=== PATIENT | male | born 1950 | race Caucasian/White ===

== ENCOUNTER → 2021-03-22 13:12 | Outpatient (BNVA) | payer MEDICARE, SELFPAY | PROVIDERS: Family Provider Family Medicine; Visit Provider Nurse Practitioner Family | DX: Z20.822 Contact with and (suspected) exposure to COVID-19 (principal) | CPT/HCPCS: 87635 ==

== ENCOUNTER 2021-08-05 17:27 | Emergency (ER) | payer MEDICARE, SELFPAY ==
[2021-08-05 17:31] VITALS: BP 141/112; PULSE 77; RESP 16; O2SAT 97; BMI 26.5
--- NOTE | 2021-08-05 17:35 | ECG_ITS ---
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 Measurements Intervals [place] Rate: 67 P: 50 [place]: 146 QRS: 19 QRSD: 89 T: 32 QT: 388 QTc: 410 Interpretive Statements SINUS RHYTHM No previous ECG available for comparison Electronically Signed On 08-05-2021 20:19:47 REGENERATOR OPERATOR by Chey Ayala M.D. [id number]
--- NOTE | 2021-08-05 17:35 | XRR_ITS ---
PROCEDURE INFORMATION: Exam: XR Chest Exam date and time: 08/05/2021 5:35 PM Age: 71 years old Clinical indication: Sternal or substernal pain; Additional info: Cp TECHNIQUE: Imaging protocol: XR of the chest. Views: 1 view. COMPARISON: CR Cervical Spine AP/Lat* [id number] 01/02/2019 1:53 PM FINDINGS: Lungs: See Heart/Mediastinum finding. Pleural spaces: Unremarkable. No pleural effusion. No pneumothorax. Heart/Mediastinum: Cardiomegaly and mild pulmonary vascular congestion. Bones/joints: Unremarkable. XR/XR chest 1V portable [id number] IMPRESSION: Cardiomegaly and mild pulmonary vascular congestion.
--- NOTE | 2021-08-05 18:06 | W.ED.GENADLT ---
HPI - General Adult General: Chief complaint: Chest Pain Stated complaint: CHEST PAIN Time Seen by Provider: 08/05/21 17:35 History of Present Illness: HPI narrative: CC: Chest Pain HPI: This is a [71] yo patient hx of CAD s/p stent x 4 presenting to the ED complaining of acute sudden onset intermittent chest pain since 2 pm. She was asleep when this happened. Since then, patient has not had any relief of pain. Patient tells me that he last saw Dr. Ayala more than a year ago patient stopped currently taking any medicine because insurance does not cover the medicines. No associated with shortness of breath, chest pain or dyspnea on exertion. Pain is not tearing in nature and does not radiate to the back. Pain not associated with vomiting or PO intake. Denies any recent sympathomimetic drug use. Patient denies any cough. Denies palpitations, dysphagia, diaphoresis, radiation of pain to bilateral arms, jaw. Denies F/N/V/D. Patient denies any recent immobility, surgery, unilateral leg swelling, or prior PE. Patient denies any orthopnea. Onset: 2pm ago Duration: ongoing for the 4 hrs Location: home Severity: mild/moderate Associated symptoms: Reports chest pain; Deny dyspnea, nausea, rash, palpitations or vomiting Review of Systems Const: Denies: fever(s) or chills Eyes: Denies: change in vision ENMT: Denies: mouth pain Card: Reports: chest pain; Denies: palpitations Resp: Denies: dyspnea or non-productive cough GI: Denies: abdominal pain, nausea, vomiting or diarrhea : Denies: dysuria Musc: Denies: extremity pain Skin/Breast: Denies: rash or new lesions Neuro: Denies: weakness in extremities Psych: Reports: other (Normal mood) [place]/Lymph: Denies: easy bruising PFSH ED PFSH: Medical History CAD (coronary artery disease) Carotid stenosis Chronic migraine Cognitive impairment CVA (cerebral vascular accident) GERD (gastroesophageal reflux disease) 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 HTN (hypertension) Hyperlipidemia Sleep apnea TIA (transient ischemic attack) Surgical History S/P cardiac catheterization Family History Other CAD (coronary artery disease) Cancer Diabetes Hepatitis Myocardial infarct Social History Smoking and tobacco status: former smoker Quit status (tobacco): has quit using tobacco Year quit tobacco: 1999 Alcohol intake: never Physical Exam Const: COMMON NORMALS: alert HENMT: COMMON NORMALS: atraumatic HEAD & SCALP: atraumatic MOUTH: moist mucous membranes not abnormal Eye: COMMON NORMALS: EOMs intact bilaterally and conjunctivae normal CONJUNCTIVA: Yes conjunctivae normal Neck/C-Spine: COMMON NORMALS: full ROM and supple Resp: COMMON NORMALS: normal respiratory effort and clear to auscultation bilaterally AUSCULTATION: clear to auscultation bilaterally Cardio: COMMON NORMALS: regular rate RATE: regular rate GI: COMMON NORMALS: Soft to palpation and non-tender (to palpation in all quadrants) PALPATION: Yes Soft to palpation OTHER: No focal TTP. NO guarding rebound, guarding, rigidity. No CVA tenderness to percussion. Neg Le/Neg McBurney's point tenderness, no suprabupic tenderness to palpation. Extremity: COMMON NORMALS: full ROM Neuro: SENSORIUM/ORIENTATION: Yes alert MOTOR EXAM: No Abnormal motor strength present and Other motor observations present (no focal motor deficits) Psych: COMMON NORMALS: speech normal SPEECH: Yes normal speech MOOD & AFFECT: Yes euthymic mood Course Vital Signs: Vital signs: Vital Signs Pulse Rate 64 08/05/21 18:55 Respiratory Rate 16 08/05/21 18:55 Blood Pressure 141/110 08/05/21 18:55 Pulse Oximetry 97 08/05/21 18:55 MDM - General Adult MDM Narrative: Medical decision making narrative: [71]yo patient w/ hx of CAD s/p stents x 4 not currently medicine presenting to the ED with evaluation of new onset of chest pain x 4 hrs at rest. HDS, pulse 2+ radially bilaterally, no signs of fluid overload, AAOx3, neuro exam intact. Patient received ASA, nitro x 3, nitro patch en route Workup: E CXR, CBC, BMP, Troponin x2, EKG x 2 Interventions: morphine Findings: ECG: No overt evidence of STEMI, hyperacute T waves, localizable STD or T wave inversions. No evidence of Brugada?s sign, delta wave, epsilon wave, significantly prolonged QTc, or malignant arrhythmia. No Q waves. Other Labs unremarkable for emergent problems. Dimer appears to mildly elevated [6:08pm] On reassessment, the patient is HDS, no complaints of persistent chest pain in the ED after evaluation. CTA chest showed type B aortic dissection. BP appears to be well-controlled. Patient received fentanyl for chest pain and labetolol for HR control Pending transfer at this time. Case signed out to Dr. Houston. Lab Data: Labs: Lab Results 08/05/21 08/05/21 08/05/21 18:00 18:00 18:00 WBC 6.9 10^3/uL 10^3/ uL (4.0-10.0) RBC 5.39 10^6/uL H 10 ^6/uL (4.1-5.3) Hgb 15.4 g/dL g/dL (11.7-16.6) Hct 48.0 % % (42.0-52.0) MCV 89.1 fl fl (80-94) MCH 28.6 pg pg (28.0-34.0) MCHC 32.1 g/dL g/dL (30.0-36.0) RDW 12.9 % % (12.1-15.1) Plt Count 182 10^3/cmm 10^3 /cmm (130-400) MPV 9.7 fL fL (7.4-10.4) Neut % (Auto) 67.9 % % Lymph % (Auto) 19.0 % % [place] % (Auto) 7.8 % % Eos % (Auto) 4.5 % % Baso % (Auto) 0.7 % % Neut # (Auto) 4.66 10^3/uL 10^3 /uL (1.8-7.7) Lymph # (Auto) 1.3 10^3/uL 10^3/ uL (0.8-4.8) [place] # (Auto) 0.5 10^3/uL 10^3/ uL (0.2-0.9) Eos # (Auto) 0.3 10^3/uL 10^3/ uL (0.0-0.8) Baso # (Auto) 0.1 10^3/uL 10^3/ uL (0.0-0.1) Nucleated RBC % (a uto) 0 % % Nucleated RBCs # 0.0 /100WBC /100W BC D-Dimer Sodium 139 mmol/L mmol/L (136-145) Potassium 4.0 mmol/L mmol/L (3.5-5.1) Chloride 103 mmol/L mmol/L (98-107) Carbon Dioxide 26 mmol/L mmol/L (22-29) Anion Gap 14.0 (5-19) BUN 10 mg/dL mg/dL (8-23) Creatinine 0.8 mg/dL mg/dL (0.7-1.2) GFR Calculation 95.6 mL/min mL/mi n (90-130) Glucose 102 mg/dL mg/dL (65-115) Calculated Osmolal ity 287 mOsm/kg mOsm/ kg (285-295) Calcium 8.4 mg/dL L mg/dL (8.5-10.5) Troponin T Baselin e 9 ng/L ng/L (0-15) Troponin T 120 Min [place] Delta Troponin T SARS-CoV-2 Ag (Rap id) 08/05/21 08/05/21 08/05/21 18:00 19:35 19:38 WBC RBC Hgb Hct MCV MCH MCHC RDW Plt Count MPV Neut % (Auto) Lymph % (Auto) [place] % (Auto) Eos % (Auto) Baso % (Auto) Neut # (Auto) Lymph # (Auto) [place] # (Auto) Eos # (Auto) Baso # (Auto) Nucleated RBC % (a uto) Nucleated RBCs # D-Dimer 0.74 ug/mIFEU H u g/mIFEU (0-0.59) Sodium Potassium Chloride Carbon Dioxide Anion Gap BUN Creatinine GFR Calculation Glucose Calculated Osmolal ity Calcium Troponin T Baselin e Troponin T 120 Min [place] 8.82 ng/L ng/L (0-15) Delta Troponin T -0.18 ABS# L ABS# (0-10) SARS-CoV-2 Ag (Rap id) Negative (Negative) Imaging Data^: Other Imaging: Radiologist's impression: [address] [id number] Scan ReportSigned Patient: Amol Gputa RUnit #: [id number]: [id number]#:[id number]/Sex: 71 / MADM Date: 08/05/21Loc: ERRoom/Bed:Attending Dr: Ordering Provider/Ordering MD: Tobi Allen MD Date of Service: 08/05/21 Procedure(s): CT angio chest PE protcl [id number] Accession Number(s): [id number] Report Number: [id number] PROCEDURE INFORMATION: Exam: CTA Chest With Contrast Exam date and time: 08/05/2021 6:34 PM Age: 71 years old Clinical indication: Pain; Chest pressure; Additional info: Eval pe TECHNIQUE: Imaging protocol: Computed tomographic angiography of the chest with contrast. 3D rendering (Not supervised by radiologist): MIP and/or 3D reconstructed images were created by the technologist. Radiation optimization: All CT scans at this facility use at least one of these dose optimization techniques: automated exposure control; mA and/or kV adjustment per patient size (includes targeted exams where dose is matched to clinical indication); or iterative reconstruction. Contrast material: OMNI 350; Contrast volume: 86 ml; Contrast route: INTRAVENOUS (IV); COMPARISON: CR (CHEST, ) 08/05/2021 5:58 PM RADIATION DOSE METRICS: Total DLP (mGy-cm): 564.94 FINDINGS: Pulmonary arteries: Normal. No pulmonary emboli. Aorta: Aortic dissection involving the ascending and descending thoracic aorta without findings of rupture, consistent with a [place] type B dissection. Lungs: Emphysematous changes. Bilateral dependent atelectasis. Pleural spaces: Unremarkable. No pneumothorax. No pleural effusion. Heart: Coronary artery atherosclerotic calcifications. Cardiomegaly. Lymph nodes: Several prominent nonspecific subcentimeter mediastinal lymph nodes. Bones/joints: Unremarkable. No acute fracture. Soft tissues: Unremarkable. CT/CT angio chest PE protcl [id number] IMPRESSION: 1. Aortic dissection involving the ascending and descending thoracic aorta without findings of rupture, consistent with a [place] type B dissection. 2. Emphysematous changes. 3. Coronary artery atherosclerotic calcifications. 4. Cardiomegaly. 5. Bilateral dependent atelectasis. 6. Several prominent nonspecific subcentimeter mediastinal lymph nodes. 7. Cholelithiasis Dictated By:Luan Hagen MDSigned By:Luan Hagne MDSigned Date/Time:08/05/215DD/ [address] [facility] [place], [place] [address]AI Scan ReportSigned with Addenda Patient: Amol Gupta #: [id number]: [id number]#:[id number]/Sex: 71 / MADM Date: 08/05/21Loc: ERRoom/Bed:Attending Dr: Ordering Provider/Ordering MD: Tobi Allen MD Date of Service: 08/05/21 Procedure(s): CT angio chest abdomen pelvis Accession Number(s): [id number] Report Number: [id number]/CT angio chest abdomen pelvis Findings discussed on the phone with Dr. Rucker. We discussed that there is an asymmetric rind of low-density material about the lateral to posterior descending thoracic aorta originate distal to the left subclavian artery somewhat concerning for a thrombosed false lumen of an aortic dissection in the appropriate clinical setting. Addendum Dictated By: Luan Hagen MDAddendum Signed By: Luan Hagen MDSigned Date/Time:08/05/213Addendum Cosigned By: PROCEDURE INFORMATION: Exam: CTA Chest With Contrast Exam date and time: 08/05/2021 7:13 PM Age: 71 years old Clinical indication: Pain and abnormal findings; Abnormal radiologic exam of lung or chest; Chest pressure; Abnormal diagnostic imaging exam; Abnormality: Cta pe; Exam and body structure: Aortic dissection; Other: Cta chest; Prior surgery; Additional info: Characterize the aortic dissection on cta TECHNIQUE: Imaging protocol: Computed tomographic angiography of the chest with contrast. 3D rendering (Not supervised by radiologist): MIP and/or 3D reconstructed images were created by the technologist. Radiation optimization: All CT scans at this facility use at least one of these dose optimization techniques: automated exposure control; mA and/or kV adjustment per patient size (includes targeted exams where dose is matched to clinical indication); or iterative reconstruction. Contrast material: OMNI 350; Contrast volume: 95 ml; Contrast route: INTRAVENOUS (IV); COMPARISON: CT angio chest PE protcl [id number] 08/05/2021 6:43 PM RADIATION DOSE METRICS: Total DLP (mGy-cm): 1632.1 FINDINGS: Pulmonary arteries: Normal. No pulmonary emboli. Aorta: Previously described suspected thoracic aortic dissection is not as clearly identified on this exam, a rim of low-density material is seen about the thoracic aorta extending distal to left subclavian artery suggesting perhaps a thrombosed false lumen of a dissection. Finding would be consistent with a [place] type B dissection if this does indeed represent a dissection with a thrombosed false lumen Lungs: Emphysematous changes. Bilateral dependent atelectasis. Pleural spaces: Unremarkable. No pneumothorax. No pleural effusion. Heart: Cardiomegaly. Coronary artery atherosclerotic calcifications. Lymph nodes: Unremarkable. No enlarged lymph nodes. Bones/joints: Unremarkable. No acute fracture. Soft tissues: Unremarkable. PROCEDURE INFORMATION: Exam: CTA Abdomen and Pelvis With Contrast Exam date and time: 08/05/2021 7:13 PM Age: 71 years old Clinical indication: Pain and abnormal findings; Abnormal radiologic exam of lung or chest; Chest pressure; Abnormal diagnostic imaging exam; Abnormality: Cta pe; Exam and body structure: Aortic dissection; Other: Cta chest; Prior surgery; Additional info: Characterize the aortic dissection on cta TECHNIQUE: Imaging protocol: Computed tomographic angiography of the abdomen and pelvis with contrast material. 3D rendering (Not supervised by radiologist): MIP and/or 3D reconstructed images were created by the technologist. Radiation optimization: All CT scans at this facility use at least one of these dose optimization techniques: automated exposure control; mA and/or kV adjustment per patient size (includes targeted exams where dose is matched to clinical indication); or iterative reconstruction. Contrast material: OMNI 350; Contrast volume: 95 ml; Contrast route: INTRAVENOUS (IV); COMPARISON: CT angio chest PE protcl [id number] 08/05/2021 6:43 PM RADIATION DOSE METRICS: Total DLP (mGy-cm): 1632.1 FINDINGS: Aorta: No aortic aneurysm. No aortic dissection. Celiac trunk and mesenteric arteries: No occlusion or significant stenosis. Renal arteries: No occlusion or significant stenosis. Right iliac arteries: No occlusion or significant stenosis. Left iliac arteries: No occlusion or significant stenosis. Liver: No mass. Gallbladder and bile ducts: Unremarkable. No calcified stones. No ductal dilation. Pancreas: Unremarkable. No mass. No ductal dilation. Spleen: Unremarkable. No splenomegaly. Adrenal glands: Unremarkable. No mass. Kidneys and ureters: Left kidney cyst, negative for follow-up advised Stomach and bowel: Unremarkable. No obstruction. No mucosal thickening. Appendix: No evidence of appendicitis. Intraperitoneal space: Unremarkable. No free air. No significant fluid collection. Lymph nodes: Unremarkable. No enlarged lymph nodes. Urinary bladder: Unremarkable. No mass. Reproductive: Unremarkable as visualized. Bones/joints: Lumbar spine surgical hardware. Soft tissues: Unremarkable. CT/CT angio chest abdomen pelvis IMPRESSION: 1. Previously described suspected thoracic aortic dissection is not as clearly identified on this exam, a rim of low-density material is seen about the thoracic aorta extending distal to left subclavian artery suggesting perhaps a thrombosed false lumen of a dissection. Finding would be consistent with a [place] type B dissection if this does indeed represent a dissection with a thrombosed false lumen. Negative for findings of rupture 2. Emphysematous changes. 3. Bilateral dependent atelectasis. 4. Cardiomegaly. 5. Coronary artery atherosclerotic calcifications. IMPRESSION: Unremarkable CTA. Dictated By:Luan Hagen MDSigned By:Luan Hagen MDSigned Date/Time:08/05/212125DD/ 12 Discharge Plan Discharge Patient Disposition: Transfer to ED Clinical Impression: Chest pain, Aortic dissection Condition: Stable Prescriptions: No Action No Known Home Medications RF: 0 Coding Level of Care Code ED Wood Cabinetmaker for Chg Fwd Exam Comprehensive
[2021-08-05 18:15] LABS: Basophils # 0.1 10^3/uL (0.0-0.1); Basophils % 0.7 %; Eosinophils # 0.3 10^3/uL (0.0-0.8); Eosinophils % 4.5 %; Hemoglobin 15.4 g/dL (11.7-16.6); Lymphocytes # 1.3 10^3/uL (0.8-4.8); Mean Corpuscular HGB Conc 32.1 g/dL (30.0-36.0); Mean Corpuscular Hemoglobin 28.6 pg (28.0-34.0); Mean Corpuscular Volume 89.1 fl (80-94); Mean Platelet Volume 9.7 fL (7.4-10.4); Monocytes # 0.5 10^3/uL (0.2-0.9); Monocytes % 7.8 %; Neutrophils # 4.66 10^3/uL (1.8-7.7); Neutrophils % 67.9 %; Nucleated Red Blood Cells % 0 %; Platelet Count 182 10^3/cmm (130-400); Red Blood Count 5.39 10^6/uL (4.1-5.3); Red Cell Distribution Width 12.9 % (12.1-15.1); White Blood Count 6.9 10^3/uL (4.0-10.0)
[2021-08-05 18:31] LABS: D Dimer 0.74 ug/mIFEU (0-0.59)
[2021-08-05 18:33] LABS: Blood Urea Nitrogen 10 mg/dL (8-23); Calcium 8.4 mg/dL (8.5-10.5); Carbon Dioxide 26 mmol/L (22-29); Chloride 103 mmol/L (98-107); Creatinine Clr Calc Pharmacy 94.0212; Glomerular Filtration Rate 95.6 mL/min (90-130); Glucose 102 mg/dL (65-115); Osmolality Calculated 287 mOsm/kg (285-295); Sodium 139 mmol/L (136-145)
[2021-08-05 18:34] LABS: Troponin(5th) Baseline 9 ng/L (0-15)
--- NOTE | 2021-08-05 18:34 | CTR_ITS ---
PROCEDURE INFORMATION: Exam: CTA Chest With Contrast Exam date and time: 08/05/2021 6:34 PM Age: 71 years old Clinical indication: Pain; Chest pressure; Additional info: Eval pe TECHNIQUE: Imaging protocol: Computed tomographic angiography of the chest with contrast. 3D rendering (Not supervised by radiologist): MIP and/or 3D reconstructed images were created by the technologist. Radiation optimization: All CT scans at this facility use at least one of these dose optimization techniques: automated exposure control; mA and/or kV adjustment per patient size (includes targeted exams where dose is matched to clinical indication); or iterative reconstruction. Contrast material: OMNI 350; Contrast volume: 86 ml; Contrast route: INTRAVENOUS (IV); COMPARISON: CR (CHEST, ) 08/05/2021 5:58 PM RADIATION DOSE METRICS: Total DLP (mGy-cm): 564.94 FINDINGS: Pulmonary arteries: Normal. No pulmonary emboli. Aorta: Aortic dissection involving the ascending and descending thoracic aorta without findings of rupture, consistent with a [place] type B dissection. Lungs: Emphysematous changes. Bilateral dependent atelectasis. Pleural spaces: Unremarkable. No pneumothorax. No pleural effusion. Heart: Coronary artery atherosclerotic calcifications. Cardiomegaly. Lymph nodes: Several prominent nonspecific subcentimeter mediastinal lymph nodes. Bones/joints: Unremarkable. No acute fracture. Soft tissues: Unremarkable. CT/CT angio chest PE protcl [id number] IMPRESSION: 1. Aortic dissection involving the ascending and descending thoracic aorta without findings of rupture, consistent with a [place] type B dissection. 2. Emphysematous changes. 3. Coronary artery atherosclerotic calcifications. 4. Cardiomegaly. 5. Bilateral dependent atelectasis. 6. Several prominent nonspecific subcentimeter mediastinal lymph nodes. 7. Cholelithiasis
[2021-08-05] MEDS: iohexol 350 mg/mL 100 mL Btl IV ×2 (18:45→20:33)
[2021-08-05 18:55] VITALS: BP 141/110; PULSE 64; RESP 16; O2SAT 97
--- NOTE | 2021-08-05 19:13 | CTR_ITS ---
PROCEDURE INFORMATION: Exam: CTA Chest With Contrast Exam date and time: 08/05/2021 7:13 PM Age: 71 years old Clinical indication: Pain and abnormal findings; Abnormal radiologic exam of lung or chest; Chest pressure; Abnormal diagnostic imaging exam; Abnormality: Cta pe; Exam and body structure: Aortic dissection; Other: Cta chest; Prior surgery; Additional info: Characterize the aortic dissection on cta TECHNIQUE: Imaging protocol: Computed tomographic angiography of the chest with contrast. 3D rendering (Not supervised by radiologist): MIP and/or 3D reconstructed images were created by the technologist. Radiation optimization: All CT scans at this facility use at least one of these dose optimization techniques: automated exposure control; mA and/or kV adjustment per patient size (includes targeted exams where dose is matched to clinical indication); or iterative reconstruction. Contrast material: OMNI 350; Contrast volume: 95 ml; Contrast route: INTRAVENOUS (IV); COMPARISON: CT angio chest PE protcl [id number] 08/05/2021 6:43 PM RADIATION DOSE METRICS: Total DLP (mGy-cm): 1632.1 FINDINGS: Pulmonary arteries: Normal. No pulmonary emboli. Aorta: Previously described suspected thoracic aortic dissection is not as clearly identified on this exam, a rim of low-density material is seen about the thoracic aorta extending distal to left subclavian artery suggesting perhaps a thrombosed false lumen of a dissection. Finding would be consistent with a [place] type B dissection if this does indeed represent a dissection with a thrombosed false lumen Lungs: Emphysematous changes. Bilateral dependent atelectasis. Pleural spaces: Unremarkable. No pneumothorax. No pleural effusion. Heart: Cardiomegaly. Coronary artery atherosclerotic calcifications. Lymph nodes: Unremarkable. No enlarged lymph nodes. Bones/joints: Unremarkable. No acute fracture. Soft tissues: Unremarkable. PROCEDURE INFORMATION: Exam: CTA Abdomen and Pelvis With Contrast Exam date and time: 08/05/2021 7:13 PM Age: 71 years old Clinical indication: Pain and abnormal findings; Abnormal radiologic exam of lung or chest; Chest pressure; Abnormal diagnostic imaging exam; Abnormality: Cta pe; Exam and body structure: Aortic dissection; Other: Cta chest; Prior surgery; Additional info: Characterize the aortic dissection on cta TECHNIQUE: Imaging protocol: Computed tomographic angiography of the abdomen and pelvis with contrast material. 3D rendering (Not supervised by radiologist): MIP and/or 3D reconstructed images were created by the technologist. Radiation optimization: All CT scans at this facility use at least one of these dose optimization techniques: automated exposure control; mA and/or kV adjustment per patient size (includes targeted exams where dose is matched to clinical indication); or iterative reconstruction. Contrast material: OMNI 350; Contrast volume: 95 ml; Contrast route: INTRAVENOUS (IV); COMPARISON: CT angio chest PE protcl [id number] 08/05/2021 6:43 PM RADIATION DOSE METRICS: Total DLP (mGy-cm): 1632.1 FINDINGS: Aorta: No aortic aneurysm. No aortic dissection. Celiac trunk and mesenteric arteries: No occlusion or significant stenosis. Renal arteries: No occlusion or significant stenosis. Right iliac arteries: No occlusion or significant stenosis. Left iliac arteries: No occlusion or significant stenosis. Liver: No mass. Gallbladder and bile ducts: Unremarkable. No calcified stones. No ductal dilation. Pancreas: Unremarkable. No mass. No ductal dilation. Spleen: Unremarkable. No splenomegaly. Adrenal glands: Unremarkable. No mass. Kidneys and ureters: Left kidney cyst, negative for follow-up advised Stomach and bowel: Unremarkable. No obstruction. No mucosal thickening. Appendix: No evidence of appendicitis. Intraperitoneal space: Unremarkable. No free air. No significant fluid collection. Lymph nodes: Unremarkable. No enlarged lymph nodes. Urinary bladder: Unremarkable. No mass. Reproductive: Unremarkable as visualized. Bones/joints: Lumbar spine surgical hardware. Soft tissues: Unremarkable. CT/CT angio chest abdomen pelvis IMPRESSION: 1. Previously described suspected thoracic aortic dissection is not as clearly identified on this exam, a rim of low-density material is seen about the thoracic aorta extending distal to left subclavian artery suggesting perhaps a thrombosed false lumen of a dissection. Finding would be consistent with a [place] type B dissection if this does indeed represent a dissection with a thrombosed false lumen. Negative for findings of rupture 2. Emphysematous changes. 3. Bilateral dependent atelectasis. 4. Cardiomegaly. 5. Coronary artery atherosclerotic calcifications. IMPRESSION: Unremarkable CTA.
[2021-08-05] MEDS: fentaNYL 50 mcg/mL INJ 2mL IVP (19:25)
[2021-08-05] MEDS: labetalol 5 mg/mL SDV 20mL 20 MG IVP (19:26)
--- NOTE | 2021-08-05 19:35 | ECG_ITS ---
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 Measurements Intervals [place] Rate: 70 P: 46 MD: 155 QRS: 27 QRSD: 86 T: 34 QT: 394 QTc: 427 Interpretive Statements SINUS RHYTHM Compared to ECG 08/05/2021 17:55:35 No significant changes Electronically Signed On 08-05-2021 21:57:17 TECHNOLOGY SOLUTIONS ARCHITECT by Chey Ayala M.D. [id number]
[2021-08-05 20:07] LABS: Troponin 5 2HR 8.82 ng/L (0-15)
[2021-08-05 20:08] LABS: Troponin 5 2HR Delta -0.18 ABS# (0-10)
[2021-08-05 20:10] LABS: SARS Covid-2 Antigen Negative (Negative)
[2021-08-05 23:12] VITALS: BP 135/78; PULSE 68; RESP 16; O2SAT 99
[2021-08-05 23:36] VITALS: BP 135/78; PULSE 64; RESP 18; O2SAT 98
[2021-08-05] MEDS: labetalol 5 mg/mL SDV 20mL 10 MG IVP (23:38)
[2021-08-06] VITALS (9 sets, daily range): BP systolic 92–159; BP diastolic 49–79; PULSE 64–71; RESP 11–16; O2SAT 94–98
[2021-08-06 00:05] LABS: Troponin 5 6HR 8.42 ng/L (0-15)
[2021-08-06 00:08] LABS: Troponin 5 6HR Delta -0.58 ng/L (0-12)
--- NOTE | 2021-08-06 08:36 | PC.PHAR ---
pt states he takes no rx or otc medications-pt states he use to take medications but stop taking them all about 2 years ago
--- NOTE | 2021-08-08 16:13 | DCPLANNER ---
admissions manager had message to schedule a follow up appointment for patient with Dr. Lima at [facility]. RN, Sena Kim, called [facility], spoke with Amanda, gave clinic patients information. Patients information will be printed and given to Dr. Dixon nurse for review. Clinic will call patient with appointment information.
--- NOTE | 2021-08-11 07:10 | DCPLANNER ---
Patient has a follow up appointment scheduled for Friday, August 13, 2021 at 10:[address] Lima at [facility]. Clinic will call patient with appointment information.
--- NOTE | 2021-08-17 08:04 | DCPLANNER ---
Patient had a follow up appointment scheduled with Dr. Lima at [facility] - patient did attend appointment.
== END 2021-08-06 10:11 | disposition home or self-care (01) ==
PROVIDERS: Emergency Medicine; Emergency Provider Family Medicine
DX: R07.9 Chest pain, unspecified (principal); I25.10 Atherosclerotic heart disease of native coronary artery without angina pectoris; Z95.5 Presence of coronary angioplasty implant and graft; Z86.73 Personal history of transient ischemic attack (TIA), and cerebral infarction without residual deficits; I10 Essential (primary) hypertension; E78.5 Hyperlipidemia, unspecified; Z87.891 Personal history of nicotine dependence
CPT/HCPCS: 71045; 71275; 74174; 80048; 84484; 85025; 85378; 87426; 93005; 96374; 96375; 96376; 99285; J3010; J3490; Q9967

== ENCOUNTER 2021-09-11 14:10 | Inpatient (IN) | payer MEDICARE, SELFPAY ==
--- NOTE | 2021-09-11 14:22 | XRR_ITS ---
PROCEDURE INFORMATION: Exam: XR Chest Exam date and time: 09/11/2021 2:22 PM Age: 71 years old Clinical indication: Dyspnea; Additional info: Weakness TECHNIQUE: Imaging protocol: XR of the chest. Views: 1 view. COMPARISON: CR (CHEST, ) 08/05/2021 5:58 PM FINDINGS: Lungs: Patchy ground-glass opacities noted in the left lateral lower and right upper lateral lung zones suggestive of pneumonia. Pleural spaces: Unremarkable. No pleural effusion. No pneumothorax. Heart/Mediastinum: No cardiomegaly. Bones/joints: No acute fracture. XR/XR chest 1V portable [id number] IMPRESSION: Patchy ground-glass opacities noted in the left lateral lower and right upper lateral lung zones suggestive of pneumonia.
[2021-09-11 14:32] VITALS: BP 126/91; PULSE 98; RESP 18; TEMP 36.6; O2SAT 94
--- NOTE | 2021-09-11 14:56 | ECG_ITS ---
[facility] Test Date: 2021-09-11 Pat Name: Amol Gupta Department: Room: Gender: Male Rn New Grad: : 1950 Requested By: Tobi Allen Order Number: [id number] Rell MD: Hu Betancur M.D. Measurements Intervals [place] Rate: 82 P: 47 [place]: 137 QRS: 22 QRSD: 82 T: 22 QT: 370 QTc: 432 Interpretive Statements SINUS RHYTHM SEPTAL MYOCARDIAL INFARCTION , OF INDETERMINATE AGE [40+ ms Q WAVE IN V1/V2] Compared to ECG 08/05/2021 20:57:38 Myocardial infarct finding now present Electronically Signed On 09-13-2021 8:53:47 DISTRICT RECRUITER by Hu Betancur M.D. [id number]
--- NOTE | 2021-09-11 15:04 | ED_ITS ---
HPI - General Adult General: Chief complaint: Shortness of Breath/Dyspnea Stated complaint: not feeling well, trouble breathing Time Seen by Provider: 09/11/21 14:41 History of Present Illness: Patient is a 71-year-old male with history of CAD, carotid stenosis, prior CVA who presents the emergency room for evaluation of generalized weakness, decreased p.o. intake, cough, and fatigue x3 weeks. Patient says that over the last 3 weeks, he has not been able to eat or drink. Patient [place] any chest pain or shortness of breath, palpitation, nausea vomiting, diarrhea, melena hematochezia. Patient was tested for Covid and had a negative Covid antigen on 08/05/2021. Patient reports that he cannot remember anything in his feeling more forgetful. Onset:3 weeks ago Duration:3 weeks Location:home Severity:moderate/severe Associated symptoms: Deny chest pain, dyspnea, nausea, rash, palpitations or vomiting Review of Systems Const: Reports: fatigue and other (generalized weakness); Denies: fever(s) or chills Eyes: Denies: change in vision ENMT: Denies: mouth pain Card: Denies: chest pain or palpitations Resp: Reports: non-productive cough; Denies: dyspnea GI: Denies: abdominal pain, nausea, vomiting or diarrhea : Denies: dysuria Musc: Denies: extremity pain Skin/Breast: Denies: rash or new lesions Neuro: Denies: weakness in extremities Psych: Reports: other (Normal mood) [place]/Lymph: Denies: easy bruising PFS ED PFSH: Medical History CAD (coronary artery disease) Carotid stenosis Chronic migraine Cognitive impairment CVA (cerebral vascular accident) GERD (gastroesophageal reflux disease) 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 HTN (hypertension) Hyperlipidemia Sleep apnea TIA (transient ischemic attack) Surgical History S/P cardiac catheterization Family History Other CAD (coronary artery disease) Cancer Diabetes Hepatitis Myocardial infarct Social History Smoking and tobacco status: former smoker Quit status (tobacco): has quit using tobacco Year quit tobacco: 1999 Alcohol intake: never Physical Exam Const: COMMON NORMALS: alert HENMT: COMMON NORMALS: atraumatic HEAD & SCALP: atraumatic MOUTH: moist mucous membranes abnormal Eye: COMMON NORMALS: EOMs intact bilaterally and conjunctivae normal CONJUNCTIVA: Yes conjunctivae normal Neck/C-Spine: COMMON NORMALS: full ROM and supple Resp: COMMON NORMALS: normal respiratory effort OTHER: +L coarse breath sounds Cardio: COMMON NORMALS: regular rate RATE: regular rate GI: COMMON NORMALS: Soft to palpation and non-tender PALPATION: Yes Soft to palpation Extremity: COMMON NORMALS: full ROM Neuro: SENSORIUM/ORIENTATION: Yes alert MOTOR EXAM: No Abnormal motor strength present and Other motor observations present (no focal motor deficits) Psych: COMMON NORMALS: speech normal SPEECH: Yes normal speech MOOD & AFFECT: Yes euthymic mood Course Vital Signs: Vital signs: Vital Signs Temperature 97.9 F 09/11/21 14:32 Pulse Rate 74 09/11/21 15:57 Respiratory Rate 14 09/11/21 15:57 Blood Pressure 123/82 09/11/21 15:57 Pulse Oximetry 92 09/11/21 15:57 MDM - General Adult Medical Decision Making 71-year-old male presents emergency room with complaints of hydration, decreased p.o. intake, cough, shortness of breath x3 weeks. On arrival, patient is afebrile with coarse breath sounds on the L . Patient continues to be satting well and 91 to 93% on room air. XR showed ground-glass opacities of the left lung consistent with possible pneumonia. Covid swab pending. Patient white count of 3.5 today. Patient received azithromycin, ceftriaxone 2 L of fluid. Given age of 71, and finding of pneumonia, dehydration, patient will need to the hospital for rehydration and treatment of community-acquired pneumonia. Disposition: admission Lab Data : 09/11/21 15:03 09/11/21 15:03 Radiology Impressions Chest X-Ray 09/11/21 14:22 IMPRESSION: Patchy ground-glass opacities noted in the left lateral lower and right upper lateral lung zones suggestive of pneumonia. Laboratory Results WBC 3.5 10^3/uL (4.0-10.0) L 09/11/21 15:03 RBC 6.22 10^6/uL (4.1-5.3) H 09/11/21 15:03 Hgb 17.1 g/dL (11.7-16.6) H 09/11/21 15:03 Hct 53.3 % (42.0-52.0) H 09/11/21 15:03 MCV 85.7 fl (80-94) 09/11/21 15:03 MCH 27.5 pg (28.0-34.0) L 09/11/21 15:03 MCHC 32.1 g/dL (30.0-36.0) 09/11/21 15:03 RDW 12.9 % (12.1-15.1) 09/11/21 15:03 Plt Count 142 10^3/cmm (130-400) 09/11/21 15:03 MPV 10.6 fL (7.4-10.4) H 09/11/21 15:03 Neut % (Auto) 79.7 % 09/11/21 15:03 Lymph % (Auto) 14.0 % 09/11/21 15:03 [place] % (Auto) 5.7 % 09/11/21 15:03 Eos % (Auto) 0.0 % 09/11/21 15:03 Baso % (Auto) 0.0 % 09/11/21 15:03 Neut # (Auto) 2.78 10^3/uL (1.8-7.7) 09/11/21 15:03 Lymph # (Auto) 0.5 10^3/uL (0.8-4.8) L 09/11/21 15:03 [place] # (Auto) 0.2 10^3/uL (0.2-0.9) 09/11/21 15:03 Eos # (Auto) 0.0 10^3/uL (0.0-0.8) 09/11/21 15:03 Baso # (Auto) 0.0 10^3/uL (0.0-0.1) 09/11/21 15:03 Nucleated RBC % (auto) 0 % 09/11/21 15:03 Nucleated RBCs # 0.0 /100WBC 09/11/21 15:03 Sodium 140 mmol/L (136-145) 09/11/21 15:03 Potassium 3.7 mmol/L (3.5-5.1) 09/11/21 15:03 Chloride 102 mmol/L (98-107) 09/11/21 15:03 Carbon Dioxide 24 mmol/L (22-29) 09/11/21 15:03 Anion Gap 17.7 (5-19) 09/11/21 15:03 BUN 23 mg/dL (8-23) 09/11/21 15:03 Creatinine 1.0 mg/dL (0.7-1.2) 09/11/21 15:03 GFR Calculation 73.9 mL/min (90-130) L 09/11/21 15:03 Glucose 113 mg/dL (65-115) 09/11/21 15:03 Calculated Osmolality 294 mOsm/kg (285-295) 09/11/21 15:03 Lactic Acid 1.5 mmol/L (0.5-2.2) 09/11/21 15:03 Calcium 9.1 mg/dL (8.5-10.5) 09/11/21 15:03 Total Bilirubin 0.7 mg/dL (0.15-1.2) 09/11/21 15:03 AST 43 U/L (0-40) H 09/11/21 15:03 ALT 26 U/L (0-41) 09/11/21 15:03 Alkaline Phosphatase 27 IU/L (40-130) L 09/11/21 15:03 Troponin T Baseline 16 ng/L (0-15) H 09/11/21 15:03 NT-Pro-B Natriuret Pep 176 pg/mL (0-125) H 09/11/21 15:03 Total Protein 6.9 g/dL (6.6-8.7) 09/11/21 15:03 Albumin 3.9 g/dL (3.5-5.2) 09/11/21 15:03 Globulin 3.0 g/dL (1.3-4.6) 09/11/21 15:03 Imaging Data Other Imaging: Radiologist's impression: [address] [place] [address] XRay Report Signed Patient: Amol Gupta Unit #: [id number] : 1950 Age/Sex: 71 / M ADM Date: 09/11/21 Loc: ER Room/Bed: Attending Dr: Ordering Provider/Ordering MD: Coby Jimenez Date of Service: 09/11/21 Procedure(s): XR chest 1V portable [id number] Accession Number(s): [id number] Report Number: [id number] PROCEDURE INFORMATION: Exam: XR Chest Exam date and time: 09/11/2021 2:22 PM Age: 71 years old Clinical indication: Dyspnea; Additional info: Weakness TECHNIQUE: Imaging protocol: XR of the chest. Views: 1 view. COMPARISON: CR (CHEST, ) 08/05/2021 5:58 PM FINDINGS: Lungs: Patchy ground-glass opacities noted in the left lateral lower and right upper lateral lung zones suggestive of pneumonia. Pleural spaces: Unremarkable. No pleural effusion. No pneumothorax. Heart/Mediastinum: No cardiomegaly. Bones/joints: No acute fracture. XR/XR chest 1V portable [id number] IMPRESSION: Patchy ground-glass opacities noted in the left lateral lower and right upper lateral lung zones suggestive of pneumonia. ? Dictated By: Nayla Melendez MD Signed By: Nayla Melendez MD Signed Date/Time: 09/11/21 1543 DD/ 1422 Discharge Plan Discharge Condition: Stable Prescriptions: No Action metoprolol succinate 25 mg tablet extended release 24 hr 25 mg PO DAILY Qty: 30 5RF isosorbide mononitrate 30 mg tablet extended release 24 hr 30 mg PO DAILY Qty: 30 5RF clopidogrel 75 mg tablet 75 mg PO DAILY Qty: 30 5RF Coding Level of Care Code ED Clinical Systems Educator for Chg Fwd Exam Comprehensive
[2021-09-11 15:14] LABS: Hematocrit 53.3 % (42.0-52.0); Hemoglobin 17.1 g/dL (11.7-16.6); Lymphocytes # 0.5 10^3/uL (0.8-4.8); Mean Corpuscular HGB Conc 32.1 g/dL (30.0-36.0); Mean Corpuscular Hemoglobin 27.5 pg (28.0-34.0); Mean Corpuscular Volume 85.7 fl (80-94); Mean Platelet Volume 10.6 fL (7.4-10.4); Monocytes # 0.2 10^3/uL (0.2-0.9); Monocytes % 5.7 %; Neutrophils # 2.78 10^3/uL (1.8-7.7); Neutrophils % 79.7 %; Nucleated Red Blood Cells % 0 %; Platelet Count 142 10^3/cmm (130-400); Red Blood Count 6.22 10^6/uL (4.1-5.3); Red Cell Distribution Width 12.9 % (12.1-15.1); White Blood Count 3.5 10^3/uL (4.0-10.0)
[2021-09-11 15:29] VITALS: BP 121/79; PULSE 84; RESP 15; O2SAT 96
[2021-09-11 15:32] LABS: Lactic Sepsis W/Reflex 1.5 mmol/L (0.5-2.2)
[2021-09-11 15:41] LABS: Troponin(5th) Baseline 16 ng/L (0-15)
[2021-09-11 15:44] LABS: Alanine Aminotransferase 26 U/L (0-41); Albumin Level 3.9 g/dL (3.5-5.2); Alkaline Phosphatase 27 IU/L (40-130); Anion Gap 17.7 (5-19); Aspartate Amino Transferase 43 U/L (0-40); Blood Urea Nitrogen 23 mg/dL (8-23); Calcium 9.1 mg/dL (8.5-10.5); Carbon Dioxide 24 mmol/L (22-29); Chloride 102 mmol/L (98-107); Glomerular Filtration Rate 73.9 mL/min (90-130); Glucose 113 mg/dL (65-115); NT Pro B Type Natriuretic Pept 176 pg/mL (0-125); Osmolality Calculated 294 mOsm/kg (285-295); Potassium 3.7 mmol/L (3.5-5.1); Sodium 140 mmol/L (136-145); Total Bilirubin 0.7 mg/dL (0.15-1.2); Total Protein 6.9 g/dL (6.6-8.7)
[2021-09-11 15:57] VITALS: BP 123/82; PULSE 74; RESP 14; O2SAT 92
[2021-09-11] MEDS: sodium chloride 0.9% 1,000 ML 999 ML IV (16:11)
[2021-09-11] MEDS: famotidine 20 mg/2 mL INJ IVP (16:12)
[2021-09-11] MEDS: cefTRIAXone 1,000 MG in sodium chloride 0.9% (plus) 50 ML 100 MG IV (16:16)
[2021-09-11] MEDS: lidocaine 2% viscous 15 ML, aluminum-mag hydrox-simethicon 30 ML, sucralfate oral liq 1 GM PO (16:17)
--- NOTE | 2021-09-11 16:56 | ECG_ITS ---
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 Measurements Intervals [place] Rate: 60 P: 53 NV: 145 QRS: 24 QRSD: 90 T: 21 QT: 427 QTc: 429 Interpretive Statements SINUS RHYTHM Compared to ECG 09/11/2021 15:39:38 Myocardial infarct finding no longer present Electronically Signed On 09-13-2021 9:01:35 POLYTECHNIC REGISTRAR by Hu Betancur M.D. [id number]
[2021-09-11] MEDS: azithromycin 500 MG in sodium chloride 0.9% 250 ML 250 MG IV (17:22)
[2021-09-11 18:10] LABS: Adenovirus Not Detected (NOT DETECT); Chlamydia Pneumoniae Not Detected (NOT DETECT); Coronavirus 229E,HKU1,NL63,OC4 Not Detected (NOT DETECT); Human Metapneumovirus Not Detected (NOT DETECT); Human Rhinovirus/Enterovirus Not Detected (NOT DETECT); Influenza A Not Detected (NOT DETECT); Influenza A H1 Not Detected (NOT DETECT); Influenza A H1-2009 Not Detected (NOT DETECT); Influenza A H3 Not Detected (NOT DETECT); Influenza B Not Detected (NOT DETECT); Mycoplasma Pneumoniae Not Detected (NOT DETECT); Parainfluenza Virus Type 1 Not Detected (NOT DETECT); Parainfluenza Virus Type 2 Not Detected (NOT DETECT); Parainfluenza Virus Type 3 Not Detected (NOT DETECT); Parainfluenza Virus Type 4 Not Detected (NOT DETECT); Respiratory Syncytial Virus A Not Detected (NOT DETECT); Respiratory Syncytial Virus B Not Detected (NOT DETECT); SARS-COV-2 Detected (NOT DETECT)
--- NOTE | 2021-09-11 18:22 | PM.HP ---
Providers/Chief Complaint Admitting Physician: Devora Mccoy MD Chief Complaint: not feeling well, trouble breathing History of Present Illness Amol Gupta is a 71 year old male who has been feeling sick for last 2 to 3 weeks came in because of confusion, not able to eat and weakness. Patient is stating that his symptoms started roughly 3 weeks ago with generalized weakness and fatigue which has gotten worse over the span. He is denying chest pain, diarrhea, nausea, vomiting. He is not able to eat because of change of taste and postnasal drip and GERD. He was sent in today because of worsening confusion. In the ER diagnostic work-up revealed COVID-19 pneumonia, he is hemodynamically stable, no fever, clinically looks dehydrated Patient is not vaccinated EKG showing sinus rhythm We will start Decadron and remdesivir Review of Systems Const: Reports: chills, body aches and fatigue Eyes: Denies: change in vision ENMT: Reports: throat pain Card: Denies: chest pain Resp: Denies: dyspnea GI: Reports: nausea, heartburn and bloating : Denies: flank pain Musc: Reports: extremity pain Skin/Breast: Denies: rash Neuro: Denies: headache(s) Psych: Denies: anxiety Endo: Denies: polyuria Clayton/Lymph: Denies: easy bruising All/Imm: Denies: urticaria Medications/Allergies Home Medications Medication Instructions Recorded Confirmed Last Taken Type clopidogrel 75 mg tablet 75 mg PO DAILY #30 tab 08/23/21 09/11/21 Unknown Rx isosorbide mononitrate 30 mg 30 mg PO DAILY #30 tab 08/23/21 09/11/21 Unknown Rx tablet,extended release 24 hr metoprolol succinate 25 mg 25 mg PO DAILY #30 tab 08/23/21 09/11/21 Unknown Rx tablet,extended release 24 hr Allergies Allergy/AdvReac Type Severity Reaction Status Date / Time methadone Allergy Unknown Verified 09/11/21 16:30 prednisone Allergy Unknown Verified 09/11/21 16:30 PFSH Acute PFSH: Medical History CAD (coronary artery disease) Carotid stenosis Chronic migraine Cognitive impairment CVA (cerebral vascular accident) GERD (gastroesophageal reflux disease) 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 HTN (hypertension) Hyperlipidemia Sleep apnea TIA (transient ischemic attack) Surgical History S/P cardiac catheterization Family History Other CAD (coronary artery disease) Cancer Diabetes Hepatitis Myocardial infarct Social History Smoking and tobacco status: former smoker Quit status (tobacco): has quit using tobacco Year quit tobacco: 1999 Alcohol intake: never Vitals/I&O/Wt Last Vital Signs Temp 97.9 F 09/11/21 14:32 Pulse 74 09/11/21 15:57 Resp 14 09/11/21 15:57 BP 123/82 09/11/21 15:57 Pulse Ox 92 09/11/21 15:57 09/11/21 09/11/21 09/11/21 06:59 14:59 22:59 Intake Total 1050 / 1050 Balance 1050 / 1050 Weight last 48 hrs Weight 73.482 kg Physical Exam Narrative: elderly male Clinically dehydrated Currently on room air Following commands however taking time to answer my questions, is oriented to time place and person Struggling to code events from the past stating difficulty to think No active neurological deficits noted Clinically very dry Abdomen is soft Lower extremity no edema Data : 09/11/21 15:03 09/11/21 15:03 A&P Assessment and plan (1) COVID-19: Status: Acute (2) Sleep apnea: Status: Acute Qualifiers: Sleep apnea type: obstructive Qualified Code(s): G47.33 - Obstructive sleep apnea (adult) (pediatric) (3) GERD (gastroesophageal reflux disease): Status: Acute (4) Chronic thoracic aortic dissection: Status: Acute (5) HTN (hypertension): Status: Acute Qualifiers: Hypertension type: primary hypertension Qualified Code(s): I10 - Essential (primary) hypertension Plan COVID-19 related pneumonia No signs of hypoxia Encephalopathy related to COVID-19/mental fog We will give him Ritalin 1 dose tomorrow morning No active neurological deficit We will give him Decadron hold off on remdesivir He is not requiring oxygen at this point Check ABG in the morning Check inflammatory markers Check D-dimer Loss of appetite and taste secondary to COVID-19 I will hydrate him with IV fluids Full code Cardiac diet DVT prophylaxis Lovenox 30 mg twice daily Attestations Medical Necessity Statement*: More than 2 midnights anticipated Time Spent in Patient Care: 35 minutes Coding Level of Care Code Acute Front Counter Clerk for Chg Fwd Diagnoses COVID-19 U07.1 Sleep apnea G47.33 Sleep apnea type: obstructive GERD (gastroesophageal reflux disease) K21.9 Chronic thoracic aortic dissection I71.01 HTN (hypertension) I10 Hypertension type: primary hypertension
[2021-09-11 18:41] LABS: Troponin 5 2HR 15.02 ng/L (0-15)
[2021-09-11 18:42] LABS: Troponin 5 2HR Delta -0.98 ABS# (0-10)
[2021-09-11 19:29] LABS: Procalcitonin 0.05 ng/mL (0-0.5)
[2021-09-11 22:29] VITALS: BP 143/69; PULSE 70; RESP 21; O2SAT 92
[2021-09-11 22:58] VITALS: BP 147/71; PULSE 70; RESP 22; O2SAT 92
[2021-09-12] VITALS (9 sets, daily range): BP systolic 106–137; BP diastolic 67–84; PULSE 62–85; RESP 17–22; TEMP 36.5–37.7; O2SAT 90–93; BMI 24.1
[2021-09-12] MEDS: sodium chloride 0.9% 1,000 ML 100 ML IV (04:00)
[2021-09-12 04:38] LABS: ABG PCO2 30.2 mmHg (35-45); ABG PH Result 7.49 (7.35-7.45); Arterial Blood Gas Hematocrit 48.2 % (42-52); Base Excess ABG 0.7 mmol/L (-2.0-2.0); Blood Gas Allen Test Pos; Blood Gas Sample Site Radial, right; Blood Gas Sample Type Arterial; PO2 ABG 61.5 mmHg (80.0-100.0)
[2021-09-12 04:44] LABS: Hematocrit 48.2 % (42.0-52.0); Hemoglobin 15.6 g/dL (11.7-16.6); Lymphocytes # 0.7 10^3/uL (0.8-4.8); Lymphocytes % 25.4 %; Mean Corpuscular HGB Conc 32.4 g/dL (30.0-36.0); Mean Corpuscular Hemoglobin 27.5 pg (28.0-34.0); Mean Platelet Volume 11.6 fL (7.4-10.4); Monocytes # 0.1 10^3/uL (0.2-0.9); Monocytes % 5.1 %; Neutrophils # 1.91 10^3/uL (1.8-7.7); Neutrophils % 69.1 %; Nucleated Red Blood Cells % 0 %; Platelet Count 107 10^3/cmm (130-400); Red Blood Count 5.67 10^6/uL (4.1-5.3); Red Cell Distribution Width 12.9 % (12.1-15.1); White Blood Count 2.8 10^3/uL (4.0-10.0)
[2021-09-12] MEDS: dexamethasone 10 mg/mL INJ IVP (04:56)
[2021-09-12 05:20] LABS: Alanine Aminotransferase 20 U/L (0-41); Albumin Level 3.1 g/dL (3.5-5.2); Alkaline Phosphatase 24 IU/L (40-130); Anion Gap 16.5 (5-19); Aspartate Amino Transferase 36 U/L (0-40); Blood Urea Nitrogen 17 mg/dL (8-23); C Reactive Protein 51.2 mg/L (0.0-4.9); Calcium 7.4 mg/dL (8.5-10.5); Carbon Dioxide 21 mmol/L (22-29); Chloride 104 mmol/L (98-107); Globulin 2.7 g/dL (1.3-4.6); Glomerular Filtration Rate 95.6 mL/min (90-130); Glucose 95 mg/dL (65-115); Magnesium 2.4 mg/dL (1.7-2.3); Osmolality Calculated 287 mOsm/kg (285-295); Potassium 3.5 mmol/L (3.5-5.1); Sodium 138 mmol/L (136-145); Total Bilirubin 0.5 mg/dL (0.15-1.2); Total Protein 5.8 g/dL (6.6-8.7)
[2021-09-12 05:31] LABS: Slide Review Slide Review Perform
[2021-09-12] MEDS: dexamethasone 10 mg/mL INJ 6 MG IVP (06:58)
[2021-09-12] MEDS: methylphenidate 10 mg Tablet 5 MG PO ×2 (07:31→11:27)
[2021-09-12] MEDS: heparin 5,000 unit/mL INJ 1 mL 5000 UNIT SUBCUT (07:32)
[2021-09-12] MEDS: azithromycin 250 mg Tablet 500 MG PO (08:24)
[2021-09-12] MEDS: clopidogrel 75 mg Tablet PO (08:24)
[2021-09-12] MEDS: cefTRIAXone 1,000 MG in sodium chloride 0.9% (plus) 50 ML 100 MG IV (08:24)
[2021-09-12] MEDS: isosorbide mononitrate ER 30 mg Tablet PO (08:25)
[2021-09-12] MEDS: metoprolol succinate ER (24 HR) 25 mg Tablet PO (08:26)
[2021-09-12] MEDS: remdesivir 200 MG in sodium chloride 0.9% (100 ml) 60 ML 100 MG IV (09:00)
--- NOTE | 2021-09-12 11:12 | PM.PN ---
Subjective Subjective: Patient is on room air however on room air PO2 61, my concern is on ambulation his saturation will drop and he will require oxygen, therefore I will start remdesivir today Overnight no events Continue IV fluids Hydration status improving Afebrile Blood pressure stable He is feeling better in terms of his energy Vitals/I&O/Wt Last Vital Signs Temp 99 F 09/12/21 09:12 Pulse 73 09/12/21 09:12 Resp 19 H 09/12/21 09:12 BP 120/79 09/12/21 09:12 Pulse Ox 93 09/12/21 09:12 09/11/21 09/12/21 09/12/21 22:59 06:59 14:59 Intake Total 1300 / 1300 528.333 / 528.333 Balance 1300 / 1300 528.333 / 528.333 Weight last 48 hrs Weight 73.482 kg Physical Exam Narrative: Patient laying flat Saturating well on room air Signs of dehydration improving Awake and alert Nonfocal neuro exam Hard of hearing Bilateral breath sound no adventitious rhonchi or crackles S1, S2 No active complaints Appropriate mood and affect Data : 09/12/21 04:21 09/12/21 04:21 A&P Assessment and plan (1) COVID-19: Status: Acute (2) Confusion: Status: Acute (3) GERD (gastroesophageal reflux disease): Status: Acute (4) Sleep apnea: Status: Acute Qualifiers: Sleep apnea type: obstructive Qualified Code(s): G47.33 - Obstructive sleep apnea (adult) (pediatric) (5) CVA (cerebral vascular accident): Status: Acute Qualifiers: CVA mechanism: unspecified Qualified Code(s): I63.9 - Cerebral infarction, unspecified (6) HTN (hypertension): Status: Acute Qualifiers: Hypertension type: primary hypertension Qualified Code(s): I10 - Essential (primary) hypertension (7) Chronic thoracic aortic dissection: Status: Acute Plan COVID-19 related mild confusion Confusion seems to be improving Start remdesivir Continue Decadron Continue IV fluids for sake of hydration CBC, BMP reviewed, afebrile, hemodynamically stable Was not able to get in touch with his yesterday when I called, will try again today Full code Regular diet Continue ceftriaxone, discontinue azithromycin We will only give 1 dose of Ritalin today DVT prophylaxis DC heparin, will use Lovenox 40 mg daily Attestations Medical Necessity Statement*: Continue medical management Time Spent in Patient Care: 15 minutes Coding Level of Care Code Acute Client Services Representative for Chg Fwd Diagnoses COVID-19 U07.1 Confusion R41.0 GERD (gastroesophageal reflux disease) K21.9 Sleep apnea G47.33 Sleep apnea type: obstructive CVA (cerebral vascular accident) I63.9 CVA mechanism: unspecified HTN (hypertension) I10 Hypertension type: primary hypertension Chronic thoracic aortic dissection I71.01
[2021-09-12] MEDS: enoxaparin 40 mg/0.4 mL Syringe SUBCUT (11:27)
[2021-09-12] MEDS: sodium chloride 0.9% 1,000 ML 75 ML IV (21:30)
[2021-09-13 04:00] VITALS: BP 122/62; PULSE 60; RESP 17; TEMP 36.6; O2SAT 90
[2021-09-13] MEDS: dexamethasone 10 mg/mL INJ 6 MG IVP (05:26)
[2021-09-13] MEDS: remdesivir 100 MG in sodium chloride 0.9% (100 ml) 80 ML IV (05:30)
[2021-09-13 06:01] LABS: Hematocrit 48.1 % (42.0-52.0); Hemoglobin 15.4 g/dL (11.7-16.6); Lymphocytes # 0.7 10^3/uL (0.8-4.8); Lymphocytes % 13.7 %; Mean Corpuscular Hemoglobin 27.5 pg (28.0-34.0); Monocytes # 0.3 10^3/uL (0.2-0.9); Monocytes % 5.2 %; Neutrophils % 80.7 %; Nucleated Red Blood Cells % 0 %; Platelet Count 147 10^3/cmm (130-400); Red Blood Count 5.59 10^6/uL (4.1-5.3); Red Cell Distribution Width 13.2 % (12.1-15.1); White Blood Count 4.8 10^3/uL (4.0-10.0)
[2021-09-13 06:16] LABS: D Dimer 1.17 ug/mIFEU (0-0.59)
[2021-09-13 06:26] LABS: Blood Urea Nitrogen 26 mg/dL (8-23); Calcium 8.5 mg/dL (8.5-10.5); Carbon Dioxide 23 mmol/L (22-29); Chloride 110 mmol/L (98-107); Glomerular Filtration Rate 111.5 mL/min (90-130); Glucose 133 mg/dL (65-115); Osmolality Calculated 301 mOsm/kg (285-295); Sodium 142 mmol/L (136-145)
[2021-09-13 07:33] VITALS: BP 131/79; PULSE 65; RESP 18; TEMP 36.7; O2SAT 92
[2021-09-13 07:38] LABS: Slide Review Slide Review Perform
[2021-09-13] MEDS: clopidogrel 75 mg Tablet PO (07:57)
[2021-09-13] MEDS: isosorbide mononitrate ER 30 mg Tablet PO (07:57)
[2021-09-13] MEDS: methylphenidate 10 mg Tablet 5 MG PO (07:57)
[2021-09-13] MEDS: metoprolol succinate ER (24 HR) 25 mg Tablet PO (07:57)
[2021-09-13] MEDS: cefTRIAXone 1,000 MG in sodium chloride 0.9% (plus) 50 ML 100 MG IV (07:58)
--- NOTE | 2021-09-13 09:07 | PM.PN ---
Subjective Subjective: Patient is doing well on room air, he was eating breakfast this morning, no overnight events He was anxious to return home to the care of his cats however sent and thinks he needs next day of medications for his COVID-19 pneumonia in the hospital Vitals/I&O/Wt Last Vital Signs Temp 98.0 F 09/13/21 07:33 Pulse 65 09/13/21 07:33 Resp 18 09/13/21 07:33 BP 131/79 09/13/21 07:33 Pulse Ox 92 09/13/21 07:33 09/12/21 09/13/21 09/13/21 22:59 06:59 14:59 Intake Total 150 / 1061.333 80 / 80 Output Total 350 / 350 Balance 150 / 1061.333 -350 / 711.333 80 / 80 Weight last 48 hrs Weight 76.249 kg Weight 73.482 kg Physical Exam Narrative: Patient was eating breakfast this morning Bilateral breath sounds I do not appreciate rhonchi or crackles No acute respiratory distress no conversational dyspnea noted Neuro exam is nonfocal Abdomen is soft no signs of tenderness No signs of peritonitis S1, S2 He looks euvolemic today Signs of dehydration improved Data : 09/13/21 05:16 09/13/21 05:16 Micro: Microbiology 09/12/21 08:30 MRSA Culture - Final Nose A&P Assessment and plan (1) Confusion: Status: Acute (2) COVID-19: Status: Acute (3) GERD (gastroesophageal reflux disease): Status: Acute (4) Sleep apnea: Status: Acute Qualifiers: Sleep apnea type: obstructive Qualified Code(s): G47.33 - Obstructive sleep apnea (adult) (pediatric) (5) CVA (cerebral vascular accident): Status: Acute Qualifiers: CVA mechanism: unspecified Qualified Code(s): I63.9 - Cerebral infarction, unspecified (6) HTN (hypertension): Status: Acute Qualifiers: Hypertension type: primary hypertension Qualified Code(s): I10 - Essential (primary) hypertension Plan Encephalopathy related to COVID-19 pneumonia Encephalopathy has resolved Nonfocal neuro exam Patient is awake and alert I only gave him 1 dose of Ritalin so far, will give extra dose tomorrow Continue Decadron, Will do home O2 evaluation before discharge, and planning to release him from the hospital tomorrow Afebrile, discontinue ceftriaxone Dehydration: Improved discontinue IV fluids today He is tolerating his diet very well, Regular diet Patient lives alone however I do not appreciate any signs of severe weakness I am anticipating he will be able to return home tomorrow Attestations Medical Necessity Statement*: Continue medical management Time Spent in Patient Care: 15 minutes Coding Level of Care Code Acute Stakeholder Manager for g Fwd Diagnoses Confusion R41.0 COVID-19 U07.1 GERD (gastroesophageal reflux disease) K21.9 Sleep apnea G47.33 Sleep apnea type: obstructive CVA (cerebral vascular accident) I63.9 CVA mechanism: unspecified HTN (hypertension) I10 Hypertension type: primary hypertension
--- NOTE | 2021-09-13 09:12 | CT_ITS ---
WS: [id number] CTA OF THE CHEST WITH PULMONARY EMBOLISM PROTOCOL TECHNIQUE: High-resolution contrast enhanced CTA of the chest with coronal and sagittal reformatted i torries with pulmonary embolism protocol. MIP images are also reviewed. CLINICAL INFORMATION: high dimer covid COMPARISON: None. DLP: 558.[address] scans at [facility] use at least one of these dose optimization techniques: automated e xposure control; mA and/or kV adjustment per patient size (includes targeted exams where dose is matc hed to clinical indication); or iterative reconstruction. FINDINGS: Proximal main pulmonary arteries are normal. Normal segmental pulmonary arteries. Distal most vessels not well visualized. No filling defects to indicate pulmonary embolus. Previously described aortic dissection not as well visualized on this study. Hazy scattered diffuse g roundglass infiltrates are new since the prior CT worse involving the RIGHT upper lobe. No focal pneu monia or pleural fluid. No mediastinal or hilar lymphadenopathy. Mild perihilar bronchovascular thick ening. No axillary lymphadenopathy. Cholelithiasis. Moderate esophageal hiatal hernia. Adrenal glands are normal. CT/CT angio chest PE protcl [id number] IMPRESSION: 1. No evidence of pulmonary embolus. Distal most pulmonary arteries not well e valuated. 2. Hazy scattered diffuse groundglass infiltrates are new since August 05 compatible with Covid 19 pneumonia 3. Previously described aortic dissection 9 as well seen on this study due to bolus timing for PE protocol. 4. Moderate esophageal hiatal hernia. 5. Cholelithiasis.
[2021-09-13 09:33] VITALS: O2SAT 91; O2SAT 93
--- NOTE | 2021-09-13 09:56 | PC.NURSE ---
patient taken to CT via wheelchair by staff
[2021-09-13] MEDS: iohexol 350 mg/mL 100 mL Btl IV (10:03)
[2021-09-13 10:09] VITALS: PULSE 79; RESP 17; O2SAT 92
--- NOTE | 2021-09-13 10:42 | PC.CHAP ---
Pastoral Care Encounter/Spiritual Assessment Type of Contact [] Declined property controller visit [] Patient/Family/Request visit [] Outpatient visit [] Follow-up visit [] Physician referral [] Code/Alert [x] Routine visit [] Staff referral [] Actively dying [] Patient sleeping [] Family support [] [] Out of room [] Palliative care [] [] Receiving care in room [] Pre-surgical visit [] Trauma [] Long length of stay [] ICU visit [] Other: Relational/Emotional Strength [x] Patient feels connected with others/family/visitors/staff [] Distress [] Loneliness/isolation [] Abandonment Spirituality of Patient [x] Person of Kiley [] Attends Mormonism of their Kiley [x] Believes in Prayer [] Reads Bible or Tenriism materials [] There are Spiritual issues to be addressed Chef Assistant Interventions [x] Prayer [x] Active listening [x] Non-anxious presence [] Spiritual/emotional support [] Crisis/trauma care [] Spiritual counseling [] Bereavement support [] Provided bereavement packet [] Provided Bible/devotional materials [] Provided toy/stuffed animal, coloring book to patient or family member [] Provided Communion [] Anointing/[place] [] Salvation [x] Completed spiritual assessment [] Other: Impact on Illness or Injury [] Angry [] Fearful [] Anxious [] Often cries [] Exhaustion [] Unable to work [] Unable to attend buddhism [] Unable to walk/stand [] Unable to read [] Unable to drive [] Unable to eat/drink [] Unable to sleep [] Unable to be with family [] Patient intubated [] Other: Summary Time spent with patient 10 min
--- NOTE | 2021-09-13 10:45 | PC.NURSE ---
EFRAIN Otoole notified that patient is requesting paperwork and information about advance directives.
[2021-09-13] MEDS: enoxaparin 40 mg/0.4 mL Syringe SUBCUT (11:32)
[2021-09-13 16:00] VITALS: BP 124/72; PULSE 71; RESP 18; TEMP 36.6; O2SAT 91
[2021-09-13 20:00] VITALS: BP 129/85; PULSE 66; RESP 17; TEMP 36.7; O2SAT 94
[2021-09-14] VITALS: BP 136/93; PULSE 76; RESP 20; TEMP 36.4; O2SAT 93
[2021-09-14 04:00] VITALS: BP 143/88; PULSE 57; RESP 16; TEMP 36.6; O2SAT 90
[2021-09-14 04:56] LABS: ABG PCO2 33.1 mmHg (35-45); ABG PH Result 7.47 (7.35-7.45); Arterial Blood Gas Hematocrit 46.4 % (42-52); Base Excess ABG 0.9 mmol/L (-2.0-2.0); Blood Gas Sample Site Brachial, right; Blood Gas Sample Type Arterial; HCO3 ABG 23.9 mmol/L (22-26); PO2 ABG 61.3 mmHg (80.0-100.0)
[2021-09-14] MEDS: dexamethasone 10 mg/mL INJ 6 MG IVP (05:52)
[2021-09-14] MEDS: remdesivir 100 MG in sodium chloride 0.9% (100 ml) 80 ML IV (06:16)
[2021-09-14 06:32] LABS: Basophils % 0.1 %; Hematocrit 50.6 % (42.0-52.0); Hemoglobin 15.6 g/dL (11.7-16.6); Lymphocytes # 0.7 10^3/uL (0.8-4.8); Lymphocytes % 10.3 %; Mean Corpuscular HGB Conc 30.8 g/dL (30.0-36.0); Mean Corpuscular Hemoglobin 27.8 pg (28.0-34.0); Mean Platelet Volume 10.5 fL (7.4-10.4); Monocytes # 0.4 10^3/uL (0.2-0.9); Monocytes % 5.3 %; Neutrophils # 5.87 10^3/uL (1.8-7.7); Neutrophils % 83.6 %; Nucleated Red Blood Cells % 0 %; Platelet Count 158 10^3/cmm (130-400); Red Blood Count 5.62 10^6/uL (4.1-5.3); Red Cell Distribution Width 13.3 % (12.1-15.1)
[2021-09-14 06:50] LABS: Anion Gap 14.6 (5-19); Blood Urea Nitrogen 26 mg/dL (8-23); Calcium 7.8 mg/dL (8.5-10.5); Carbon Dioxide 21 mmol/L (22-29); Chloride 112 mmol/L (98-107); Glomerular Filtration Rate 111.5 mL/min (90-130); Glucose 125 mg/dL (65-115); Osmolality Calculated 304 mOsm/kg (285-295); Potassium 3.6 mmol/L (3.5-5.1); Sodium 144 mmol/L (136-145)
[2021-09-14 07:48] LABS: Slide Review Slide Review Perform
[2021-09-14 08:00] VITALS: BP 143/76; PULSE 62; RESP 18; TEMP 36.9; O2SAT 92
[2021-09-14] MEDS: methylphenidate 10 mg Tablet 5 MG PO (08:09)
[2021-09-14] MEDS: metoprolol succinate ER (24 HR) 25 mg Tablet PO (08:09)
[2021-09-14] MEDS: clopidogrel 75 mg Tablet PO (08:09)
[2021-09-14] MEDS: isosorbide mononitrate ER 30 mg Tablet PO (08:09)
[2021-09-14 09:07] VITALS: PULSE 79; RESP 18; O2SAT 93
[2021-09-14 10:03] LABS: Oxygen Device ROOM AIR
--- NOTE | 2021-09-14 10:33 | P.DS_ITS ---
Discharge Providers Date of Admission: 09/11/21 17:40 Date of Discharge: September 14, 2021 Attending Provider at Admission: Devora Mccoy MD Attending Provider at Discharge: Devora Mccoy MD Diagnoses at Discharge Discharge Diagnosis (1) Confusion: Status: Acute (2) COVID-19: Status: Acute (3) GERD (gastroesophageal reflux disease): Status: Acute (4) Sleep apnea: Status: Acute Qualifiers: Sleep apnea type: obstructive Qualified Code(s): G47.33 - Obstructive sleep apnea (adult) (pediatric) (5) CVA (cerebral vascular accident): Status: Acute Qualifiers: CVA mechanism: unspecified Qualified Code(s): I63.9 - Cerebral infarction, unspecified (6) HTN (hypertension): Status: Acute Qualifiers: Hypertension type: primary hypertension Qualified Code(s): I10 - Essential (primary) hypertension Reason for Visit Reason for Visit: not feeling well, trouble breathing Hospital Course Hospital Course Patient was admitted on 09/11 for management of encephalopathy. He was diagnosed with COVID-19. His encephalopathy improved with IV fluid hydration, he was given Ritalin trial as well which improved his symptoms. He did not require oxygen he did well on room air, however I did give him remdesivir and Decadron. He will be discharged on 09/14. He did not qualify for oxygen at the time of discharge. For his hypertension noticed during hospitalization added amlodipine low-dose. CTA rule out PE, he has chronic aortic dissection, asked him to follow-up with his PCP. Physical Exam Narrative: Patient was eating breakfast this morning Bilateral breath sounds I do not appreciate rhonchi or crackles No acute respiratory distress no conversational dyspnea noted Neuro exam is nonfocal Abdomen is soft no signs of tenderness No signs of peritonitis S1, S2 He looks euvolemic today Signs of dehydration improved Discharge Data Studies Completed and Pending Completed Studies During Hospitalization Category Date Time Status CTA PE [CT angio chest PE protcl [id number]] Routine Cat Scan 09/13/21 09:12 Completed XR chest 1V portable [id number] Urgent Exams 09/11/21 14:22 Completed Radiology Impressions Chest X-Ray 09/11/21 14:22 IMPRESSION: Patchy ground-glass opacities noted in the left lateral lower and right upper lateral lung zones suggestive of pneumonia. Chest CTA 09/13/21 09:12 IMPRESSION: 1. No evidence of pulmonary embolus. Distal most pulmonary arteries not well evaluated. 2. Hazy scattered diffuse groundglass infiltrates are new since August 05, 2021 compatible with Covid 19 pneumonia 3. Previously described aortic dissection 9 as well seen on this study due to bolus timing for PE protocol. 4. Moderate esophageal hiatal hernia. 5. Cholelithiasis. Laboratory Results WBC 7.0 10^3/uL (4.0-10.0) 09/14/21 06:16 RBC 5.62 10^6/uL (4.1-5.3) H 09/14/21 06:16 Hgb 15.6 g/dL (11.7-16.6) 09/14/21 06:16 Hct 50.6 % (42.0-52.0) 09/14/21 06:16 MCV 90.0 fl (80-94) 09/14/21 06:16 MCH 27.8 pg (28.0-34.0) L 09/14/21 06:16 MCHC 30.8 g/dL (30.0-36.0) 09/14/21 06:16 RDW 13.3 % (12.1-15.1) 09/14/21 06:16 Plt Count 158 10^3/cmm (130-400) 09/14/21 06:16 MPV 10.5 fL (7.4-10.4) H 09/14/21 06:16 Neut % (Auto) 83.6 % 09/14/21 06:16 Lymph % (Auto) 10.3 % 09/14/21 06:16 O'Brien % (Auto) 5.3 % 09/14/21 06:16 Eos % (Auto) 0.0 % 09/14/21 06:16 Baso % (Auto) 0.1 % 09/14/21 06:16 Neut # (Auto) 5.87 10^3/uL (1.8-7.7) 09/14/21 06:16 Lymph # (Auto) 0.7 10^3/uL (0.8-4.8) L 09/14/21 06:16 O'Brien # (Auto) 0.4 10^3/uL (0.2-0.9) 09/14/21 06:16 Eos # (Auto) 0.0 10^3/uL (0.0-0.8) 09/14/21 06:16 Baso # (Auto) 0.0 10^3/uL (0.0-0.1) 09/14/21 06:16 Nucleated RBC % (auto) 0 % 09/14/21 06:16 Nucleated RBCs # 0.0 /100WBC 09/14/21 06:16 D-Dimer 1.17 ug/mIFEU (0-0.59) H 09/13/21 05:16 Specimen Type Arterial 09/14/21 04:45 Sample Site Brachial, right 09/14/21 04:45 ABG pH 7.47 (7.35-7.45) H 09/14/21 04:45 ABG pCO2 33.1 mmHg (35-45) L 09/14/21 04:45 ABG pO2 61.3 mmHg (80.0-100.0) L 09/14/21 04:45 ABG HCO3 23.9 mmol/L (22-26) 09/14/21 04:45 ABG Base Excess 0.9 mmol/L (-2.0-2.0) 09/14/21 04:45 Marlon Test N/a 09/14/21 04:45 Hematocrit 46.4 % (42-52) 09/14/21 04:45 O2 Delivery Device None 09/14/21 04:45 FiO2 21.0 % 09/14/21 04:45 Thermodynamicist ID Trace 09/14/21 04:45 Sodium 144 mmol/L (136-145) 09/14/21 06:16 Potassium 3.6 mmol/L (3.5-5.1) 09/14/21 06:16 Chloride 112 mmol/L (98-107) H 09/14/21 06:16 Carbon Dioxide 21 mmol/L (22-29) L 09/14/21 06:16 Anion Gap 14.6 (5-19) 09/14/21 06:16 BUN 26 mg/dL (8-23) H 09/14/21 06:16 Creatinine 0.7 mg/dL (0.7-1.2) 09/14/21 06:16 GFR Calculation 111.5 mL/min (90-130) 09/14/21 06:16 Glucose 125 mg/dL (65-115) H 09/14/21 06:16 Calculated Osmolality 304 mOsm/kg (285-295) H 09/14/21 06:16 Lactic Acid 1.5 mmol/L (0.5-2.2) 09/11/21 15:03 Calcium 7.8 mg/dL (8.5-10.5) L 09/14/21 06:16 Magnesium 2.4 mg/dL (1.7-2.3) H 09/12/21 04:21 Total Bilirubin 0.5 mg/dL (0.15-1.2) 09/12/21 04:21 AST 36 U/L (0-40) 09/12/21 04:21 ALT 20 U/L (0-41) 09/12/21 04:21 Alkaline Phosphatase 24 IU/L (40-130) L 09/12/21 04:21 Troponin T Baseline 16 ng/L (0-15) H 09/11/21 15:03 Troponin T 120 Minute 15.02 ng/L (0-15) H 09/11/21 18:02 Delta Troponin T -0.98 ABS# (0-10) L 09/11/21 18:02 Troponin T Hi Sens 6Hr 15.60 ng/L (0-15) H 09/11/21 21:30 Troponin T Hi Sens 6Hr Delta -0.40 ng/L (0-12) L 09/11/21 21:30 C-Reactive Protein 51.2 mg/L (0.0-4.9) H 09/12/21 04:21 NT-Pro-B Natriuret Pep 176 pg/mL (0-125) H 09/11/21 15:03 Total Protein 5.8 g/dL (6.6-8.7) L 09/12/21 04:21 Albumin 3.1 g/dL (3.5-5.2) L 09/12/21 04:21 Globulin 2.7 g/dL (1.3-4.6) 09/12/21 04:21 Procalcitonin 0.05 ng/mL (0-0.5) 09/11/21 18:44 Coronavirus 229E (PCR) Not detected (NOT DETECT) 09/11/21 15:03 SARS-CoV-2 (PCR) Detected (NOT DETECT) A 09/11/21 15:03 Vitals Last Vital Signs Temp 98.4 F 09/14/21 08:00 Pulse 79 09/14/21 09:07 Resp 18 09/14/21 09:07 BP 143/76 09/14/21 08:00 Pulse Ox 93 09/14/21 09:07 Discharge Plan Discharge Patient Disposition: Home Condition: Stable Prescriptions: New albuterol sulfate 90 mcg/actuation HFA aerosol inhaler 2 inh inhalation Q8H PRN (Reason: shortness of breath or wheezing) Qty: 8.5 2RF Tessalon Perles 100 mg capsule 100 mg PO BID PRN (Reason: cough) Qty: 60 0RF Delsym Cough-Sore Throat 325-10 mg/10 mL liquid 20 ml PO Q4H Qty: 180 0RF amlodipine 5 mg tablet 5 mg PO DAILY Qty: 30 3RF Continued metoprolol succinate 25 mg tablet extended release 24 hr 25 mg PO DAILY Qty: 30 5RF isosorbide mononitrate 30 mg tablet extended release 24 hr 30 mg PO DAILY Qty: 30 5RF clopidogrel 75 mg tablet 75 mg PO DAILY Qty: 30 5RF Discharge Orders: Discharge Order (Routine); Ordered 09/14/21 Ordered By: Devora Mccoy Referrals: Jl Loomis DO [Physician] - 09/24/21 9:30 am Discharge Diet: Cardiac Discharge Activity: Increase activity as tolerated Patient Instructions: Benzonatate (By mouth) (Tessalon PerlEmmie miguel), Albuterol (By breathing), Dextromethorphan (By mouth), Amlodipine (By mouth), COVID-19 (Coronavirus Disease 2019) (DC), Opioid Safety Discharge Attestations Time Spent in Discharge Care*: less than 30 min Quality Metrics Clinical Quality Measures [ No reported AMI, CVA or VTE this stay] Coding Level of Care Code Acute Chg FW DC note Diagnoses Confusion R41.0 COVID-19 U07.1 GERD (gastroesophageal reflux disease) K21.9 Sleep apnea G47.33 Sleep apnea type: obstructive CVA (cerebral vascular accident) I63.9 CVA mechanism: unspecified HTN (hypertension) I10 Hypertension type: primary hypertension
--- NOTE | 2021-09-14 10:46 | PC.NURSE ---
Notified Dr Mccoy that [facility] called and said Delsym cough and sore throat was ordered and they only have Delsym without Tylenol and Q12H. will you let them know if that will work Read 09/14/21, 10:[address] Mccoy, Without tylenol ok w me
--- NOTE | 2021-09-14 11:22 | PC.NURSE ---
discharge instructions given to patient and patient verbalized understanding of instructions. patient's home meds delivered to patient and patient taken to private vehicle via wheelchair by staff.
--- NOTE | 2021-09-14 11:39 | PC.SOCIAL ---
Pg 2 IMM Explained to pt IMM, via phone. No questions voiced. Provided pt a copy. Initialed, dated, & timed a copy & placed in chart.
[2021-09-14 12:03] VITALS: BP 143/76; PULSE 79; RESP 18; TEMP 36.9; O2SAT 93
== END 2021-09-14 12:04 | disposition home or self-care (01) | DRG 177 ==
LOC: ER 15:04 → ER IP 18:13 → MEDSURG 09-12 16:16
PROVIDERS: Emergency Medicine; Physician Assistant; Admitting Provider Internal Medicine; Emergency Provider Family Medicine; Visit Provider Internal Medicine
DX: U07.1 COVID-19 (principal); J12.82 Pneumonia due to coronavirus disease 2019; I71.01 Dissection of thoracic aorta; G93.49 Other encephalopathy; I25.10 Atherosclerotic heart disease of native coronary artery without angina pectoris; I69.398 Other sequelae of cerebral infarction; H53.469 Homonymous bilateral field defects, unspecified side; K21.9 Gastro-esophageal reflux disease without esophagitis; I10 Essential (primary) hypertension; E78.5 Hyperlipidemia, unspecified; G47.33 Obstructive sleep apnea (adult) (pediatric); Z87.891 Personal history of nicotine dependence; E86.0 Dehydration; Z79.02 Long term (current) use of antithrombotics/antiplatelets
CPT/HCPCS: 36415; 36600; 71045; 71275; 80048; 80053; 81000; 82803; 83605; 83735; 83880; 84145; 84484; 85025; 85378; 86140; 87400; 87635; 87641; 93005; 96365; 96366; 96367; 96372; 96375; 99285; J0456; J0696; J1100; J1644; J1650; J3490; J7030; J7050; Q0144; Q9967